=== PATIENT | male | born 1995 | race Caucasian/White ===

== ENCOUNTER 2021-10-14 13:33 | Emergency (ER) | payer BC ==
[2021-10-14] MEDS ORDERED: Acetaminophen 325 MG Tab PO ONE (15:06)
[2021-10-14] MEDS ORDERED: Diphtheria,Pertussis(Acell),Tetanus Vaccine 0.5 ML Syringe IM ONE (15:06)
[2021-10-14] MEDS ORDERED: Ibuprofen 400 MG Tab PO ONE (15:07)
[2021-10-14] MEDS ORDERED: Bacitracin Oint 28.35 GM Tube TOP ONE (15:30)
== END 2021-10-14 16:18 | disposition home or self-care (01) ==
LOC: MW.ED 13:33
DX: T25.212A Burn of second degree of left ankle, initial encounter (principal); Z23 Encounter for immunization; X11.8XXA Contact with other hot tap-water, initial encounter
CPT/HCPCS: 73610; 90471; 90715; 99283; A9270